=== PATIENT | male | born 1970 | race Caucasian/White ===

== ENCOUNTER 2017-04-23 10:21 | Emergency (ER) | payer OTHER ==
[2017-04-23 10:29] VITALS: BP 116/78
--- NOTE | 2017-04-23 14:07 | UC ---
Jaylan Peters Alfonso, scribed for Eduardo Correa MD on 04/23/17 at 1054 . HPI Febrile Illness - HPI Summary HPI Summary: This patient is a 46 year old male presenting to [facility] c/o a productive cough since 5 days ago. He rates the pain 2/10 in severity. Sx aggravated and alleviated by nothing. He reports headache, sinus congestion at night, fever, chills, diaphoresis, body aches, hoarse voice, and sore throat. He denies rhinorrhea, wheezing, vomiting, and rashes. Reports his 12 year old son is ill. Pt denies recent travels. Denies PMHx of asthma. PMHx hypothyroidism. - History of Current Complaint Chief Complaint: UCRespiratory Time Seen by Provider: 04/23/17 10:32 Hx Obtained From: Patient Onset/Duration: Started Days Ago - 5 days, Atraumatic, Still Present Timing: Constant Initial Severity: Mild Current Severity: Mild Pain Intensity: 2 Pain Scale Used: 0-10 Numeric Aggravating Factors: Nothing Alleviating Factors: Nothing Associated Signs and Symptoms: Other: - Positive headache, sinus congestion at night, fever, chills, diaphoresis, body aches, cough, hoarse voice, sore throat ; Negative rhinorrhea, wheezing, vomiting, and rashes. PMH/Surg Hx/FS Hx/Imm Hx Endocrine/Hematology History: Reports: Hx Thyroid Disease Sensory History: Denies: Hx Deafness Opthamlomology History: Denies: Hx Legally Blind - Surgical History Surgery Procedure, Year, and Place: right knee Infectious Disease History: No Infectious Disease History: Denies: Hx Clostridium Difficile, Hx Hepatitis, Hx Human Immunodeficiency Virus (HIV), Hx of Known/Suspected MRSA, Hx Shingles, Hx Tuberculosis, Hx Known/ Suspected VRE, Hx Known/Suspected VRSA, History Other Infectious Disease, Traveled Outside the [place] in Last 30 Days - Family History Known Family History: Negative: Cardiac Disease - Social History Alcohol Use: Rare Substance Use Type: Reports: None Smoking Status (MU): Never Smoked Tobacco Review of Systems Constitutional: Fever, Chills, Other - Positive diaphoresis, Skin: Other - Negative rash ENT: Sore Throat, Sinus Congestion - at night, Other - Positive hoarse voice; negative rhinorrhea, wheezing Respiratory: Cough - Productive Gastrointestinal: Other - Negative vomiting Musculoskeletal: Arthralgia - Body aches Neurological: Headache All Other Systems Reviewed And Are Negative: Yes Physical Exam Triage Information Reviewed: Yes Vital Signs: Initial Vital Signs Temp 98.1 F 04/23/17 10:22 Pulse 80 04/23/17 10:22 Resp 18 04/23/17 10:22 BP 116/78 04/23/17 10:22 Pulse Ox 100 04/23/17 10:22 Vital Signs Reviewed: Yes - Additional Comments The patient is well-nourished in no acute distress and in no acute pain. The skin is warm and dry and skin color reflects adequate perfusion. HEENT: The head is normocephalic and atraumatic. The pupils are equal and reactive. The conjunctivae are clear and without drainage. Nares are patent and without drainage. No rhinorrhea. Laryngitis. Posterior pharynx erythematous. No excavates. Mouth reveals moist mucous membranes and the throat is without erythema and exudate. The external ears are intact. The ear canals are patent and without drainage. The tympanic membranes are intact. Neck is supple with full range of motion and non-tender. No cervical adenopathy. Respiratory: Chest is non-tender. Lungs are clear to auscultation and breath sounds are symmetrical and equal. Cardiovascular: Heart is regular rate and rhythm. There is no murmur or rub auscultated. There is no peripheral edema and pulses are symmetrical and equal. Abdomen: The abdomen is soft and non-tender. Musculoskeletal: There is no back pain noted. Neurological: Patient is alert and oriented to person, place and time. Psychiatric: The patient has an appropriate affect and does not exhibit any anxiety or depression. Course/Dx - Course Assessment/Plan: A 46-year-old M presents to [facility] with a CC of a productive cough since 5 days ago. He reports headache, sinus congestion at night, fever, chills, diaphoresis, body aches, hoarse voice, and sore throat. He denies rhinorrhea, wheezing, vomiting, and rashes. Patient will be discharged with Augmentin and Robitussin with PCP follow up in 1 week. Pt is agreeable with this plan. - Febrile Illness Differential Diagnoses: Pneumonia, Other: - bronchitis, sinusitis - Diagnoses Clinic Provider Diagnoses: Tracheal laryngeal bronchitis. Sinusitis. Discharge - Discharge Plan Condition: Stable Disposition: HOME Prescriptions: Amoxicillin/Clavulanate TAB* [Augmentin TAB 875*] 875 mg PO BID #20 tab guaiFENesin/CODIEN 100MG-10MG* [Robitussin AC 100Mg-10Mg*] 10 ml PO Q4H PRN # 120 udc MDD 40 ml PRN Reason: cough Patient Education Materials: Sinusitis (ED), Acute Bronchitis (ED) Referrals: [facility] [Outside] - 1 Week The documentation as recorded by the Jaylan palumbo Alfonso accurately reflects the service I personally performed and the decisions made by , Eduardo Correa MD.
== END 2017-04-23 11:32 | disposition home or self-care (01) ==
LOC: UCEAST 10:21
DX: J40 Bronchitis, not specified as acute or chronic (principal); J32.9 Chronic sinusitis, unspecified; H91.90 Unspecified hearing loss, unspecified ear; H54.8 Legal blindness, as defined in USA
CPT/HCPCS: 99202; G0463

== ENCOUNTER 2018-07-01 14:30 | Emergency (ER) | payer OTHER ==
[2018-07-01 15:06] VITALS: BP 124/82
--- NOTE | 2018-07-01 15:41 | UC ---
Back Pain HPI - HPI Summary HPI Summary: patient with hx of low back pain beginning two days ago. pain has persisted and noted some numbness in both feet to the soles of the feet only, no perineal numbness, no weakness. no incontinence of stool or urine . hx. of low back pain in the past - History of Current Complaint Chief Complaint: UCBackPain Stated Complaint: BACK INUJRY Time Seen by Provider: 07/01/18 15:13 Hx Obtained From: Patient Onset/Duration: Sudden Onset, Lasting Days Timing: Constant Severity Initially: Moderate Severity Currently: Moderate Pain Intensity: 6 Back Pain: Is Discrete @ Character: Sharp Aggravating Factor(s): Movement Alleviating Factor(s): Rest Associated Signs And Symptoms: Positive: Numbness - Risk Factors Cauda Equina Risk Factors: Negative Epidural Abscess Risk Factors: Negative - Allergies/Home Medications Allergies/Adverse Reactions: Allergies Allergy/AdvReac Type Severity Reaction Status Date / Time No Known Allergies Allergy Verified 07/01/18 14:58 Home Medications: Home Medications Ibuprofen 800 mg PO Q6HR PRN 07/01/18 [History Confirmed 07/01/18] PMH/Surg Hx/FS Hx/Imm Hx Previously Healthy: Yes - Surgical History Surgical History: Yes Surgery Procedure, Year, and Place: right knee - Family History Known Family History: Negative: Cardiac Disease - Social History Alcohol Use: Rare Substance Use Type: None Smoking Status (MU): Never Smoked Tobacco Review of Systems Constitutional: Negative - of the soles of the feet and hands Skin: Negative Eyes: Negative ENT: Negative Respiratory: Negative Cardiovascular: Negative Gastrointestinal: Negative Genitourinary: Negative Motor: Negative Neurovascular: Decreased Sensation - soles of both feet Musculoskeletal: Negative Neurological: Paresthesia Is Patient Immunocompromised?: No All Other Systems Reviewed And Are Negative: Yes Physical Exam Triage Information Reviewed: Yes Appearance: Well-Appearing Vital Signs: Initial Vital Signs Temp 36.7 C 07/01/18 15:01 Pulse 67 07/01/18 15:01 Resp 16 07/01/18 15:01 BP 124/82 07/01/18 15:01 Pulse Ox 98 07/01/18 15:01 Vital Signs Reviewed: Yes Eye Exam: Normal Eyes: Positive: Conjunctiva Clear ENT Exam: Normal ENT: Positive: Normal ENT inspection Dental Exam: Normal Neck exam: Normal Neck: Positive: Supple Respiratory Exam: Normal Respiratory: Positive: Chest non-tender, Lungs clear Cardiovascular Exam: Normal Cardiovascular: Positive: RRR Neurological: Positive: Other: - dtrs symmetrical, normal heel and toe walking, negative straight leg raising , sensory testing negative , some mild parasthesia present on the soles of both feet Skin Exam: Normal Back Pain Course/Dx - Differential Dx/Diagnosis Provider Diagnoses: low back pain r/o HNP lumbar spine l5/s1 Discharge - Sign-Out/Discharge Documenting (check all that apply): Patient Departure All imaging exams completed and their final reports reviewed: Yes - Discharge Plan Condition: Good Disposition: HOME Patient Education Materials: Lumbar Disc Herniation (ED) Referrals: Sammy Mclain MD [Primary Care Provider] - Additional Instructions: should be seen by PT and for MRI to evaluate for lumbar HNP - Billing Disposition and Condition Condition: GOOD Disposition: Home
== END 2018-07-01 16:20 | disposition home or self-care (01) ==
LOC: UCEAST 14:30
DX: M54.5 Low back pain (principal)
CPT/HCPCS: 99211; G0463